=== PATIENT | female | born 1990 ===

== ENCOUNTER → 2017-07-06 | Outpatient (CLI) | payer OTHER ==
[~2017-07-06] MED LIST: ANTICONCEPTIVOS
== END | disposition home or self-care (01) ==
LOC: PPHC 14:06
DX: R53.1 Weakness (principal)

== ENCOUNTER 2019-03-17 08:53 | Emergency (ER) | payer OTHER ==
[~2019-03-17] VITALS: Ht 170.2 cm; Wt 61.2 kg
== END 2019-03-17 14:19 | disposition home or self-care (01) ==
LOC: ER 08:53
DX: N83.292 Other ovarian cyst, left side (principal); N83.291 Other ovarian cyst, right side; K59.09 Other constipation